=== PATIENT | female | born 1985 | race Caucasian/White ===

== ENCOUNTER 2016-12-07 09:36 | Emergency (ER) | payer BC ==
[2016-12-07] MEDS ORDERED: Sodium Chloride 0.9% 1,000 ML ONE (09:53)
[2016-12-07 10:16] LABS: #Basophils 0.1 thou/uL (0.0-0.2); #Eosinphils 0.1 thou/uL (0.0-0.7); #Lymphocytes 0.8 thou/uL (1.20-3.40); #Monocytes 0.5 thou/uL (0.11-0.59); #Neutrophils 7.9 thou/uL (1.40-6.50); %Basophils 0.7 % (0.0-1.0); %Eosinophils 0.9 % (0.0-10.0); %Lymphocytes 8.3 % (21.0-51.0); %Monocytes 5.5 % (0.0-10.0); %Neutrophils 84.6 % (42.0-75.0); Hemoglobin 14.7 g/dL (12.0-16.0); Mean Corpuscular HGB CONC 34.3 g/dL (32.0-36.0); Mean Corpuscular Hemoglobin 28.6 pg (27.0-31.0); Mean Corpuscular Volume 83.2 fl (81.0-99.0); Mean Platelet Volume 11.7 fL (7.4-10.4); Platelet Count 200 thou/uL (130-400); RBC Distribution Width 11.4 % (11.5-14.5); Red Blood Cell (RBC) Count 5.14 mill/uL (4.20-5.40); White Blood Cell (WBC) Count 9.3 thou/uL (4.8-10.8)
[2016-12-07] MEDS ORDERED: Ondansetron ODT 4 MG TAB ONE (10:20)
[2016-12-07 10:48] LABS: ALT (SGPT) 31 U/L (8-55); AST (SGOT) 30 U/L (5-34); Albumin 3.8 g/dL (3.5-5.0); Alkaline Phosphatase 85 U/L (40-150); Anion Gap 18 mmol/L (10-20); BUN (Urea Nitrogen) 11 mg/dL (7.0-18.7); Bilirubin, Total 0.9 mg/dL (0.2-1.2); Calc. Creatinine Clearance 0 mL/min (70-130); Calcium 8.8 mg/dL (7.8-10.44); Carbon Dioxide 22 mmol/L (22-29); Chloride 106 mmol/L (98-107); Estimated GFR-MDRD 84; Globulin 3.3 g/dL (2.4-3.5); Glucose 106 mg/dL (70-105); Potassium 3.9 mmol/L (3.5-5.1); Protein, Total 7.1 g/dL (6.0-8.3); Sodium 142 mmol/L (136-145)
== END 2016-12-07 11:48 | disposition home or self-care (01) ==
LOC: NAV ERS 09:36
DX: A08.4 Viral intestinal infection, unspecified (principal); R55 Syncope and collapse; Z90.49 Acquired absence of other specified parts of digestive tract
CPT/HCPCS: 36416; 80053; 83630; 85025; 87015; 87045; 87046; 87449; 87899; 96360; J7050; Q0162

== ENCOUNTER 2018-04-09 10:17 | Emergency (ER) | payer OTHER ==
[2018-04-09] MEDS ORDERED: Lidocaine 1% (PF) 30 ML VIAL ONE (10:39)
[2018-04-09] MEDS ORDERED: Adacel (T-DAP) 0.5 ML VIAL ONE (11:07)
== END 2018-04-09 11:22 | disposition home or self-care (01) ==
LOC: NAV ERS 10:17
DX: S61.211A Laceration without foreign body of left index finger without damage to nail, initial encounter (principal); J45.909 Unspecified asthma, uncomplicated; W26.0XXA Contact with knife, initial encounter
CPT/HCPCS: 12001; 90471; 90715; J2001

== ENCOUNTER 2018-04-20 15:49 | Emergency (ER) | payer OTHER | END 2018-04-20 18:44 | disposition home or self-care (01) | LOC: NAV ERS 15:49 | DX: S61.211D Laceration without foreign body of left index finger without damage to nail, subsequent encounter (principal); J45.909 Unspecified asthma, uncomplicated ==

== ENCOUNTER 2019-07-30 07:32 | Emergency (ER) | payer OTHER ==
[2019-07-30 08:38] LABS: Bilirubin Negative (Negative); Blood, Urine Large (Negative); Clarity Clear (Clear); Glucose, Urine (Dipstick) Negative (Negative); Leukocyte Negative (Negative); Nitrite Negative (Negative); Protein, Urine (Dipstick) Negative (Neg-Trace); Urobilinogen 0.2 mg/dL (Less than 2)
[2019-07-30 08:46] LABS: WBC/HPF 0-3 HPF (0-3)
[2019-07-30 08:47] LABS: Bacteria/HPF None Seen HPF (None Seen)
[2019-07-30 08:50] LABS: Pregnancy Test - Urine (BHCG) Negative (Negative); Pregu Control Background? CLEAR/WHITE (CLR/WHITE); Pregu Control Bar Appear? YES (CONTROL BAR); Specific Gravity 1.025 (1.002-1.036)
[2019-07-30] MEDS ORDERED: Meclizine HCl 25 MG TAB ONE (08:54)
[2019-07-30] MEDS ORDERED: Sodium Chloride 0.9% 0 ML ONE (08:54)
[2019-07-30 09:53] LABS: #Basophils 0.1 thou/uL (0.0-0.2); #Eosinphils 0.2 thou/uL (0.0-0.7); #Lymphocytes 1.1 thou/uL (1.20-3.40); #Monocytes 0.5 thou/uL (0.11-0.59); #Neutrophils 7.6 thou/uL (1.40-6.50); %Basophils 0.9 % (0.0-1.0); %Eosinophils 2.4 % (0.0-10.0); %Lymphocytes 11.6 % (21.0-51.0); %Monocytes 5.6 % (0.0-10.0); %Neutrophils 79.4 % (42.0-75.0); Hemoglobin 14.3 g/dL (12.0-16.0); Mean Corpuscular HGB CONC 33.1 g/dL (32.0-36.0); Mean Corpuscular Hemoglobin 27.5 pg (27.0-31.0); Mean Corpuscular Volume 83.1 fL (78.0-98.0); Mean Platelet Volume 9.6 fL (7.4-10.4); Platelet Count 275 thou/uL (130-400); RBC Distribution Width 11.7 % (11.5-14.5); Red Blood Cell (RBC) Count 5.19 mill/uL (4.20-5.40); White Blood Cell (WBC) Count 9.5 thou/uL (4.8-10.8)
[2019-07-30 10:36] LABS: ALT (SGPT) 54 U/L (8-55); AST (SGOT) 28 U/L (5-34); Albumin 4.4 g/dL (3.5-5.0); Alkaline Phosphatase 91 U/L (40-110); Anion Gap 16 mmol/L (10-20); BUN (Urea Nitrogen) 13 mg/dL (7.0-18.7); Bilirubin, Total 0.6 mg/dL (0.2-1.2); CK (CPK) 49 U/L (29-168); Calc. Creatinine Clearance 0 mL/min (70-130); Carbon Dioxide 23 mmol/L (22-29); Chloride 101 mmol/L (98-107); Estimated GFR-MDRD Greater than 90; Globulin 3.3 g/dL (2.4-3.5); Glucose 104 mg/dL (70-105); Potassium 4.2 mmol/L (3.5-5.1); Protein, Total 7.7 g/dL (6.0-8.3); Sodium 136 mmol/L (136-145)
[2019-07-30 10:51] LABS: Magnesium 1.9 mg/dL (1.6-2.6)
== END 2019-07-30 11:13 | disposition home or self-care (01) ==
LOC: NAV ERS 07:32
DX: E86.0 Dehydration (principal); J45.909 Unspecified asthma, uncomplicated
CPT/HCPCS: 80053; 81003; 81015; 81025; 82550; 83735; 85025; 87086; 93005; J7050; J8597

== ENCOUNTER 2019-10-14 08:46 | Outpatient (CLI) | payer BC ==
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
== END 2019-10-14 08:47 | disposition home or self-care (01) ==
LOC: NAV RAD 08:46
PROVIDERS: ATTEND Neurological Surgery
DX: S32.019A Unspecified fracture of first lumbar vertebra, initial encounter for closed fracture (principal)
CPT/HCPCS: 72100